=== PATIENT | female | born 1945 | race Caucasian/White ===

== ENCOUNTER 2017-06-19 17:36 | Emergency (ER) | payer MEDICARE, SELFPAY ==
[~2017-06-19] VITALS: Ht 160 cm; Wt 76.7 kg
[~2017-06-19 17:36] MED LIST: AMLO5 PO; ASPI81CH PO; DICL25ER; DULO60 PO; Desyrel150 MG PO; GABA300 PO; LEVSOD100 PO; LISI20 PO; METFORMIN; METO100ER PO; PRAV20 PO; PROM25
[2017-06-19 18:07] LABS: Source, Urine Clean Catch
[2017-06-19 18:11] LABS: Appearance, Urine Clear (Clear); Bilirubin, Urine Neg (Neg); Blood, Urine 1+ (Neg); Color, Urine Yellow (P-Yellow); Glucose Qualitative, Urine Neg (Neg); Ketones, Urine Neg (Neg); Leukocyte Esterase, Urine Neg (Neg); Nitrite, Urine Neg (Neg); Protein, Urine Neg (Neg); Urobilinogen, Urine NORM (Normal)
[2017-06-19 18:17] LABS: BASOPHILS ABSOLUTE AUTO 0.06 K/mm3 (0.00-0.23); BASOPHILS PERCENT AUTO 1 % (0-2); EOSINOPHILS ABSOLUTE AUTO 0.25 K/mm3 (0.00-0.68); EOSINOPHILS PERCENT AUTO 3 % (0-6); Hematocrit 33.6 % (33.0-51.0); Hemoglobin 10.5 g/dL (11.5-16.0); IMMATURE GRAN ABSOLUTE AUTO 0.02 K/mm3 (0.00-0.10); IMMATURE GRAN PERCENT AUTO 0 % (0-1); LYMPHOCYTES ABSOLUTE AUTO 4.86 K/mm3 (0.84-5.20); LYMPHOCYTES PERCENT AUTO 48 % (21-46); MONOCYTES ABSOLUTE AUTO 0.89 K/mm3 (0.16-1.47); MONOCYTES PERCENT AUTO 9 % (4-13); Mean Corpuscular HGB 26.4 pg (26.0-34.0); Mean Corpuscular HGB Conc 31.3 g/dL (31.5-36.5); Mean Corpuscular Volume 84 fL (80-100); Mean Platelet Volume 9.2 fL (9.1-12.4); NEUTROPHILS ABSOLUTE AUTO 4.12 K/mm3 (1.96-9.15); NEUTROPHILS PERCENT AUTO 40 % (41-73); Platelet Count 300 K/mm3 (150-400); RDW Coefficient Variation 13.7 % (11.7-14.2); RDW Standard Deviation 42.1 fL (35.1-46.3); Red Blood Cell Count 3.98 M/mm3 (3.80-5.20)
[2017-06-19] MEDS ORDERED: ASPI81CH PO (18:26)
[2017-06-19] MEDS ORDERED: GLIM2 PO (18:27)
[2017-06-19] MEDS ORDERED: PROM25 (18:27)
[2017-06-19] MEDS ORDERED: DULO60 (18:28)
[2017-06-19] MEDS ORDERED: NITR.4SL SL (18:28)
[2017-06-19] MEDS ORDERED: Actos15 MG PO (18:29)
[2017-06-19] MEDS ORDERED: HYDHCL25 PO (18:29)
[2017-06-19] MEDS ORDERED: TRAM50 PO (18:29)
[2017-06-19 18:30] LABS: Alanine Aminotransfer (ALT/SGP 32 U/L (12-78); Albumin, Blood 3.3 g/dL (3.4-5.0); Albumin/Globulin Ratio 0.9 (0.8-1.8); Alk Phos 87 U/L (50-136); Anion Gap 11 mmol/L (6-16); Aspartate Aminotrans (AST/SGOT 32 U/L (12-37); Bilirubin, Total 0.2 mg/dL (0.1-1.0); Blood Urea Nitrogen 12 mg/dL (8-24); Bun/Creatinine Ratio 18.9 (12.0-20.0); CO2, Blood 25 mmol/L (21-32); Calcium, Blood 8.9 mg/dL (8.5-10.1); Chloride, Blood 105 mmol/L (98-108); Creatinine, Blood 0.64 mg/dL (0.40-1.00); Globulin, Blood 3.8 g/dL (2.2-4.0); Glomerular Filtration Rate >60 (60-); Glucose, Blood 133 mg/dL (70-99); Potassium, Blood 4.4 mmol/L (3.5-5.5); Sodium, Blood 141 mmol/L (136-145); Total Protein, Blood 7.1 g/dL (6.4-8.2)
[2017-06-19 18:44] LABS: White Blood Cells, Urine 0-2 /hpf (0-5)
[2017-06-19 18:45] LABS: Bacteria Not Seen /hpf; Red Blood Cells, Urine 0-2 /hpf (0-2); Squamous Epithelial Cells Rare /hpf (Few)
[2017-06-19] MEDS ORDERED: CEPH500 PO (19:47)
[2017-09-08] MEDS ORDERED: Omeprazole20 M1 PO (08:53)
[2017-09-08] MEDS ORDERED: Percocet 5-3251 EACH PO (08:54)
[2017-09-08] MEDS ORDERED: OXYC15ER PO (08:55)
[2017-09-08] MEDS ORDERED: Zofran8 MG PO (08:56)
[2017-12-06] MEDS ORDERED: CEPH500 PO (12:33)
[2017-12-06] MEDS ORDERED: FLUC100 PO (12:36)
[2017-12-06] MEDS ORDERED: Xylocaine 2% In20 ML SS (12:38)
== END 2017-06-19 20:10 | disposition home or self-care (01) ==
LOC: ER 17:36
PROVIDERS: Emergency Medicine
DX: N30.91 Cystitis, unspecified with hematuria (principal); R91.1 Solitary pulmonary nodule; E11.9 Type 2 diabetes mellitus without complications; I10 Essential (primary) hypertension; E03.9 Hypothyroidism, unspecified; Z88.0 Allergy status to penicillin; Z88.5 Allergy status to narcotic agent; Z91.018 Allergy to other foods; Z79.899 Other long term (current) drug therapy; Z90.49 Acquired absence of other specified parts of digestive tract; Z90.712 Acquired absence of cervix with remaining uterus; Z87.891 Personal history of nicotine dependence
CPT/HCPCS: 36415; 51701; 74176; 80053; 81001; 85025; 93005; 93010; 96361; 96374; 99284; J2270; J7030

== ENCOUNTER → 2017-08-09 | Outpatient (CLI) | payer MEDICARE, SELFPAY ==
[~2017-08-09] MED LIST changes: +Actos15 MG PO; +CEPH500 PO; +DULO60; +FLUC100 PO; +GLIM2 PO; +HYDHCL25 PO; +NITR.4SL SL; +OXYC15ER PO; +Omeprazole20 M1 PO; +Percocet 5-3251 EACH PO; +TRAM50 PO; +Xylocaine 2% In20 ML SS; +Zofran8 MG PO
[2017-08-09 18:23] LABS: BASOPHILS ABSOLUTE AUTO 0.06 K/mm3 (0.00-0.23); BASOPHILS PERCENT AUTO 1 % (0-2); EOSINOPHILS ABSOLUTE AUTO 0.44 K/mm3 (0.00-0.68); EOSINOPHILS PERCENT AUTO 5 % (0-6); Hematocrit 33.3 % (33.0-51.0); Hemoglobin 10.3 g/dL (11.5-16.0); IMMATURE GRAN ABSOLUTE AUTO 0.04 K/mm3 (0.00-0.10); IMMATURE GRAN PERCENT AUTO 0 % (0-1); LYMPHOCYTES ABSOLUTE AUTO 3.95 K/mm3 (0.84-5.20); LYMPHOCYTES PERCENT AUTO 43 % (21-46); MONOCYTES ABSOLUTE AUTO 0.89 K/mm3 (0.16-1.47); MONOCYTES PERCENT AUTO 10 % (4-13); Mean Corpuscular HGB 25.9 pg (26.0-34.0); Mean Corpuscular HGB Conc 30.9 g/dL (31.5-36.5); Mean Corpuscular Volume 84 fL (80-100); Mean Platelet Volume 9.9 fL (9.1-12.4); NEUTROPHILS ABSOLUTE AUTO 3.77 K/mm3 (1.96-9.15); NEUTROPHILS PERCENT AUTO 41 % (41-73); Platelet Count 300 K/mm3 (150-400); RDW Coefficient Variation 14.6 % (11.7-14.2); RDW Standard Deviation 44.7 fL (35.1-46.3); Red Blood Cell Count 3.98 M/mm3 (3.80-5.20); White Blood Cell Count 9.15 K/mm3 (4.00-11.30)
[2017-08-09 20:06] LABS: Alanine Aminotransfer (ALT/SGP 35 U/L (12-78); Albumin, Blood 3.5 g/dL (3.4-5.0); Albumin/Globulin Ratio 1.1 (0.8-1.8); Alk Phos 97 U/L (50-136); Anion Gap 7 mmol/L (6-16); Aspartate Aminotrans (AST/SGOT 41 U/L (12-37); Bilirubin, Total 0.4 mg/dL (0.1-1.0); Blood Urea Nitrogen 12 mg/dL (8-24); Bun/Creatinine Ratio 18.2 (12.0-20.0); CO2, Blood 26 mmol/L (21-32); Calcium, Blood 8.8 mg/dL (8.5-10.1); Chloride, Blood 107 mmol/L (98-108); Creatinine, Blood 0.66 mg/dL (0.40-1.00); Globulin, Blood 3.3 g/dL (2.2-4.0); Glomerular Filtration Rate >60 (60-); Glucose, Blood 161 mg/dL (70-99); Potassium, Blood 4.6 mmol/L (3.5-5.5); Sodium, Blood 140 mmol/L (136-145); Total Protein, Blood 6.8 g/dL (6.4-8.2)
== END ==
LOC: LAB 11:20
PROVIDERS: Nurse Practitioner Adult Health
DX: C25.1 Malignant neoplasm of body of pancreas (principal); D51.9 Vitamin B12 deficiency anemia, unspecified
CPT/HCPCS: 80053; 82607; 82746; 85025; 86301

== ENCOUNTER 2017-11-20 09:59 | Day surgery (SDC) | payer MEDICARE ==
[~2017-11-20 09:59] MED LIST changes: -FLUC100 PO; -Xylocaine 2% In20 ML SS
== END 2017-11-20 12:35 | disposition home or self-care (01) ==
LOC: ATC 09:59
DX: C25.1 Malignant neoplasm of body of pancreas (principal); Z87.891 Personal history of nicotine dependence; E03.9 Hypothyroidism, unspecified; E78.5 Hyperlipidemia, unspecified; I10 Essential (primary) hypertension

== ENCOUNTER 2017-11-29 10:24 | Day surgery (SDC) | payer MEDICARE | END 2017-11-29 10:45 | disposition home or self-care (01) | LOC: ATC 10:24 | DX: Z45.2 Encounter for adjustment and management of vascular access device (principal); C25.7 Malignant neoplasm of other parts of pancreas | CPT/HCPCS: 99211 ==

== ENCOUNTER 2017-12-20 00:27 | Day surgery (SDC) | payer MEDICARE ==
[~2017-12-20 00:27] MED LIST changes: +FLUC100 PO; +Xylocaine 2% In20 ML SS
== END 2017-12-20 09:25 | disposition home or self-care (01) ==
LOC: ATC 00:27
DX: C25.7 Malignant neoplasm of other parts of pancreas (principal); Z87.891 Personal history of nicotine dependence; E03.9 Hypothyroidism, unspecified; I10 Essential (primary) hypertension; E78.5 Hyperlipidemia, unspecified; E11.9 Type 2 diabetes mellitus without complications
CPT/HCPCS: 99211